=== PATIENT | female | born 1960 | race Caucasian/White ===

== ENCOUNTER → 2020-06-24 | Outpatient (CLI) | payer OTHER | LOC: MRI 08:42 | DX: M51.16 Intervertebral disc disorders with radiculopathy, lumbar region (principal); Z98.1 Arthrodesis status; R90.89 Other abnormal findings on diagnostic imaging of central nervous system | CPT/HCPCS: 36415; 72158; 82565; 84520; A9577 ==

== ENCOUNTER → 2020-08-06 | Outpatient (CLI) | payer OTHER | LOC: CT 09:07 | DX: D18.09 Hemangioma of other sites (principal); M48.56XA Collapsed vertebra, not elsewhere classified, lumbar region, initial encounter for fracture | CPT/HCPCS: 72131 ==

== ENCOUNTER 2020-10-10 19:03 | Emergency (ER) | payer OTHER | END 2020-10-10 21:00 | disposition home or self-care (01) | LOC: ER1 19:03 | DX: S61.411A Laceration without foreign body of right hand, initial encounter (principal); Z23 Encounter for immunization; W20.8XXA Other cause of strike by thrown, projected or falling object, initial encounter; Y92.009 Unspecified place in unspecified non-institutional (private) residence as the place of occurrence of the external cause | CPT/HCPCS: 12002; 73130; 90471; 90715; 99283 ==

== ENCOUNTER → 2021-01-29 | Outpatient (CLI) | payer OTHER ==
[~2021-01-29] VITALS: Ht 162.6 cm; Wt 65.8 kg
== END ==
LOC: OPSV 01-28 14:00
DX: M81.0 Age-related osteoporosis without current pathological fracture (principal); S32.000A Wedge compression fracture of unspecified lumbar vertebra, initial encounter for closed fracture
CPT/HCPCS: 96365; J3489

== ENCOUNTER → 2021-08-17 | Outpatient (CLI) | payer OTHER | LOC: MRI 13:22 | DX: M51.16 Intervertebral disc disorders with radiculopathy, lumbar region (principal); Z98.1 Arthrodesis status | CPT/HCPCS: 36415; 72158; 82565; 84520; A9577 ==

== ENCOUNTER 2021-11-15 10:59 | Emergency (ER) | payer OTHER | END 2021-11-15 11:59 | disposition home or self-care (01) | LOC: ER1 10:59 | DX: S01.81XA Laceration without foreign body of other part of head, initial encounter (principal); X58.XXXA Exposure to other specified factors, initial encounter; Y92.009 Unspecified place in unspecified non-institutional (private) residence as the place of occurrence of the external cause | CPT/HCPCS: 12011; 99282 ==

== ENCOUNTER → 2022-03-01 | Outpatient (CLI) | payer OTHER ==
[~2022-03-01] VITALS: Ht 162.6 cm; Wt 69.4 kg
== END ==
LOC: OPSV 13:27
DX: M81.0 Age-related osteoporosis without current pathological fracture (principal)
CPT/HCPCS: 96365; J3489